=== PATIENT | female | born 2000 | race Caucasian/White ===

== ENCOUNTER 2020-12-29 21:36 | Emergency (ER) | payer BC ==
[~2020-12-29] VITALS: Ht 162.6 cm; Wt 54.5 kg
[2020-12-29 21:40] VITALS: TEMP 97.2
[2020-12-29 22:20] LABS: COLLECTION METHOD CLEAN CATCH
[2020-12-29 22:23] LABS: BASO % 0.5 % (0.0-2.0); EOS # 0.1 (0.0-0.7); EOS % 1.2 % (0-4.0); GRAN # 5.5 (1.4-6.5); HEMATOCRIT 37.7 % (37.0-47.0); HEMOGLOBIN 12.6 g/dl (12.5-16.0); LYMPH # 2.5 (1.2-3.4); MEAN CELL VOLUME 90 fl (80.0-100.0); MEAN CORPUSCULAR HEMOGLOBIN 30 pg (27.0-31.0); MEAN CORPUSCULAR HGB CONC 33 g/dl (33.0-37.0); MEAN PLATELET VOLUME 8.8 fl (7.4-10.4); MONO # 0.7 (0.1-0.6); PLATELET COUNT 316 K/mm3 (130-400); REDCELL DISTRIBUTION WIDTH-CV 13.4 % (11.5-14.5)
[2020-12-29 22:27] LABS: PH 6 (5-8); SQUAMOUS EPITHELIAL None Seen /hpf; URINE APPEARANCE Clear; URINE BACTERIA None Seen /hpf; URINE BILIRUBIN Negative (NEGATIVE); URINE BLOOD 1+ (NEGATIVE); URINE COLOR Colorless; URINE GLUCOSE Negative (NEGATIVE); URINE KETONE Negative (NEGATIVE); URINE LEUKOCYTE ESTERASE Negative (NEGATIVE); URINE NITRATE Negative (NEGATIVE); URINE PROTEIN(semi-quant) Negative (NEGATIVE); URINE RBC 0-2 /hpf; URINE UROBILINOGEN Negative (NEGATIVE)
[2020-12-29 22:36] LABS: ALANINE AMINOTRANSFERASE 14 U/L (4-34); ALBUMIN 4.5 gm/dL (3.5-5.0); ALKALINE PHOSPHATASE 64 U/L (50-136); ANION GAP 9 mmol/L (7-16); AST,SGOT 25 U/L (15-37); BILIRUBIN,TOTAL 0.4 mg/dL (0.0-1.0); BLOOD UREA NITROGEN 10 mg/dL (7-17); CALCIUM 9.5 mg/dL (8.4-10.2); CARBON DIOXIDE 22 mmol/L (22-30); CHLORIDE 105 mmol/L (98-107); GLUCOSE 92 mg/dL (74-106); POTASSIUM 3.6 mmol/L (3.4-5.0); SODIUM 137 mmol/L (137-145); TOTAL PROTEIN 7.7 gm/dL (6.4-8.2)
[2020-12-29 22:52] LABS: LIPASE 46 U/L (23-300)
[2020-12-29 22:54] LABS: C-REACTIVE PROTEIN < 0.5 mg/dL (0.0-0.9)
[2020-12-30 01:00] VITALS: BP 112/70; PULSE 78
== END 2020-12-30 01:00 | disposition home or self-care (01) ==
LOC: COL.ER 21:36
PROVIDERS: Nurse Practitioner Primary Care
DX: N13.1 Hydronephrosis with ureteral stricture, not elsewhere classified (principal); F17.290 Nicotine dependence, other tobacco product, uncomplicated; Z32.02 Encounter for pregnancy test, result negative
CPT/HCPCS: J1885; J7030; Q9967

== ENCOUNTER → 2021-01-11 | Outpatient (CLI) | payer BC ==
[~2021-01-11] MED LIST: DEPO-PROVE150 MG/1 M IM
== END ==
LOC: COL.RAD 09:43
DX: N13.0 Hydronephrosis with ureteropelvic junction obstruction (principal)
CPT/HCPCS: A9562; J1940

== ENCOUNTER 2021-02-27 09:42 | Day surgery (SDC) | payer BC ==
[~2021-02-27] VITALS: Ht 162.6 cm; Wt 59.2 kg
[2021-02-27] VITALS (11 sets, daily range): BP systolic 99–118; BP diastolic 54–72; PULSE 90–100; TEMP 98–99.1
[2021-02-27] MEDS ORDERED: DEPO-PROVE150 MG/1 M IM (10:36)
--- NOTE | 2021-02-27 15:15 | NUR ---
Pt.'s 3 abdominal lap sites c/d/i. No redness pain, and warmth. ODETTE drain in place. Pt. drowsy but easily arousable.
--- NOTE | 2021-02-27 15:25 | NUR ---
Pt. back from surgery. Report received from Myesha. Pt. resting in bed, pt.'s mom at bedside. Pt. alert and able to answer questions. Pt. was sitting at the edge of the bed but then requesting to lay back down. Pt. reports pain but tolerable at this time. Pt. oriented to the room and call light safety maintained.
--- NOTE | 2021-02-27 15:55 | NUR ---
Pt. resting in bed w/ eyes closed. Frequent vital sign checks in place. Bed alarm on for safety. De Los Santos cath draining clear yellow urine.
--- NOTE | 2021-02-27 17:02 | NUR ---
Pt. awake and alert. Pt. requesting something to eat. Pt. is on clear liquids now. Pt. given applejuice and tolerated well. Pt. denies needs, scheduled meds given per order.
--- NOTE | 2021-02-27 18:25 | NUR ---
Pt. ambulated to the end of the hallway and did very well. She reports her pain is tolerable. She is sitting up in bed eating clear liquids. Plan to advance to full liquids. Needs addressed. Call light in reach.
--- NOTE | 2021-02-27 19:31 | NUR ---
Bedside shift report complete. Pt. reports Left shoulder pain. RN Fedna aware, plans for Fedna to go and give PM meds for patient when report is complete. All other needs met. Call light in reach.
--- NOTE | 2021-02-28 03:21 | NUR ---
Pt has been doing ok now. She ambulated last night in the hallway. Pain rated 8/10. Vss. Will continue to monitor.
[2021-02-28 03:34] VITALS: BP 117/58; PULSE 88; TEMP 98.5
[2021-02-28 07:23] VITALS: BP 119/79; PULSE 78; TEMP 98.5
--- NOTE | 2021-02-28 08:21 | NUR ---
De Los Santos catheter dc'd at 0810 per Dex order.
--- NOTE | 2021-02-28 11:25 | NUR ---
Patient alert and oriented, answers questions appropriately. Abdomen soft, non distended, tender to palpation. +Flatus. Lap sites to abdomen with edges well approximated, no redness or drainage noted. ODETTE drain in place to LLQ, scant amount of serosanguinous drainage noted. C/o LLQ pain 2/10 intermittently. Post op exercises reviewed. No other c/o at this time.
[2021-02-28 12:00] VITALS: BP 113/63; PULSE 72; TEMP 98
--- NOTE | 2021-02-28 12:44 | NUR ---
Initial visit; Patient and her mom thanked [employer] Supervisor for looking in on Giovanny. Patient doing well and thanked [employer] Area Supervisor for offering God's blessings and keeping her in [employer]'s prayers.
--- NOTE | 2021-02-28 12:49 | NUR ---
ODETTE drain removed from [facility] at 1140. Gauze and tegaderm dressing applied. Tolerated well.
--- NOTE | 2021-02-28 14:10 | NUR ---
Patient lives in a home with a roommate. Mother Rachna Saravia is at the bedside and patient states she is her emergency contact, #[phone]. In discussion with the patient and her mother, they think that the patient has a DPOA established that names Victor Manuel Malone, but they are unsure and do not have any copy available. I counseled them to provide a copy if able. The patient does not require any assistance at home with ADLs and does not use and assistive devices or home medical equipement. Patient states she doesn't really have a PCP and doesn't care for us to set her up with anyone. Preferred pharmacy is [facility] in [place]. Patient has no concerns for this hospital stay or her discharge; she plans to return home where her boyfriend and mother his help her as needed. DISCHARGE PLAN: HOME WITH SUPPORT
[2021-02-28 15:31] VITALS: BP 112/59; PULSE 88; TEMP 98.8
--- NOTE | 2021-02-28 16:18 | NUR ---
Discharge instructions reviewed with patient and parent, verbalized understanding. Discharged via wheelchair to auto/home with family at 1618.
== END 2021-02-28 16:18 | disposition home or self-care (01) ==
LOC: SURG 09:42 → SDCO 09:42 → SURG 17:11 → SDCO 02-28 16:18
DX: N13.0 Hydronephrosis with ureteropelvic junction obstruction (principal); N28.89 Other specified disorders of kidney and ureter; F17.290 Nicotine dependence, other tobacco product, uncomplicated; Z79.899 Other long term (current) drug therapy; Z20.822 Contact with and (suspected) exposure to COVID-19
CPT/HCPCS: OP; A4314; A9284; C1769; C2617; J0330; J0690; J1100; J1885; J2250; J2270; J2405; J2550; J2704; J3010; J7120

== ENCOUNTER → 2021-05-09 | Outpatient (CLI) | payer BC | LOC: COL.RAD 11:47 | DX: N13.0 Hydronephrosis with ureteropelvic junction obstruction (principal) ==